=== PATIENT | male | born 1945 | race Caucasian/White ===

== ENCOUNTER → 2024-07-10 16:20 | Outpatient (REF) | payer MEDICARE, BC, SELFPAY | LOC: DHSLP 16:20 | PROVIDERS: ATTENDING PHYSICIAN Internal Medicine Cardiovascular Disease; FAMILY PHYSICIAN Internal Medicine | DX: G47.33 Obstructive sleep apnea (adult) (pediatric) (principal) | CPT/HCPCS: 95800 ==

== ENCOUNTER 2024-09-24 07:37 | Day surgery (SDC) | payer MEDICARE, BC, SELFPAY ==
[2024-09-01 13:22] VITALS: BMI 38.5
[2024-09-24] VITALS (11 sets, daily range): BP systolic 120–174; BP diastolic 63–92; BMI 38.5
[2024-09-24 08:34] LABS: Glucose - Point of Care 134 mg/dl (70-99)
--- NOTE | 2024-09-24 10:46 | ITS.CL.ABL ---
[employer] - Ablation
Ablation
Procedure Report:
Primary Senior Examiner: Timothy Talamantes MD
Procedure Date: 09/24/2024
Patient History:
Patient is a pleasant 78-year-old male with a past medical history significant for hypertension, dyslipidemia, possible syncope, symptomatic persistent atrial fibrillation on Eliquis and dronedarone.
See H&P for complete details.
Indication:
Symptomatic persistent atrial fibrillation
Arrhythmia Specific History:
Prior Medical Therapies for Rate and Rhythm Control:
X Beta-oumou
[ ] Calcium channel-oumou
[ ] Amiodarone
X Dronederone
[ ] Sotalol
[ ] Flecainide
[ ] Dofetilide
[ ] Options limited by bradycardia
[ ] Options limited by comorbid renal disease
Prior Procedural Therapies for AF/AFL:
X Cardioversion
[ ] Pulmonary Vein Isolation
[ ] Posterior Wall Isolation
[ ] Additional lines (Specify)
[ ] Surgical Vega-MAZE or PVI (Specify)
Procedure Performed:
[ ] AF ablation procedure (47735) -- includes LA/CS pacing, trans-septal, 3D mapping, + ICE
[ ] +IV drug (95739)
[ ] +Other Arrhythmia (17708)
[ ] +Other AF Line/ablation (68581)
Risks and expected recovery has been explained in detail. Alternative options have been explored, and in a shared-decision making fashion we have decided that this was the most appropriate procedure.
Method
NPO status confirmed. Grounding pad applied. Defibrillator pads applied. Continuous surface ECG, pulse oximetry, and blood pressure were monitored. Procedure was performed under general anesthesia, with anesthesia services.
Both groins were clipped, prepped with Chloraprep, and draped in sterile fashion. Time out was called. Local anesthesia administered with bupivacaine. The right femoral vein was accessed for catheter placement, using ultrasound guidance,
micro-puncture needle/wire, and modified seldinger technique. 3 sheaths were placed. The following catheters were used:
[ ] Tacticath SE (D/F Curve) ablation catheter
X Viewflex 9Fr ICE catheter
X Inquiry decapolar 6Fr diagnostic catheter
[ ] CRD Hex 6Fr
[ ] Arctic Front Advance Cryoballoon ([ ]28mm[ ]23mm)
[ ] Achieve Advance mapping catheter ([ ]15mm[ ]20mm)
X FlexCath Contour 10 Fr with PulseSelect PFA Catheter
X Advisor HD Grid Mapping Catheter, SE
[ ] Acuson AcuNav 8 Fr ICE catheter
[ ]Other: [ ]
Intracardiac ultrasound (ICE) was carefully advanced into the right atrium to guide sheath placement over a J-wire, catheter placement, guide trans-septal puncture, identify potential complications, identify anatomic structures and ensure proper
contact between ablation catheter and tissue. A trace basal LV pericardial effusion was noted at baseline which remained unchanged during procedure and at case completion.
Heparin was given prior to trans-septal puncture. Heparin was given to achieve and maintain a target ACT of 300-400 seconds throughout the procedure.
Trans-septal access was performed under ICE guidance. The trans-septal puncture was performed with a SafeSept wire through a Brockenbrough needle assembly through the steerable sheath. The wire was visualized as it entered the LSPV and system
advanced under ICE guidance and fluoroscopy into the LA. The Brockenbrough needle assembly, SafeSept wire and sheath dilator were removed under negative pressure. LA pressure was measured and recorded.
ICE and 3D mapping was performed to identify relevant cardiac structures. A careful 3D map was created to assess for regions of low-voltage and abnormal electrogram signals using HD grid mapping catheter and PulseSelect catheter. Additional mapping
was performed as outlined below.
Prior to ablation, glycopyrrolate was provided. PulseSelect catheter was advanced over J-wire to the ostium of each vein. Pulmonary vein isolation was performed with ostial and antral lesions in a circumferential manner. Contact was visualized via
EAM, ICE, fluoroscopy, and EGM signals. Following completion of ablation lesions, a post-ablation voltage/activation map was performed in sinus rhythm. Entrance and exit block were confirmed for each vein.
Catheter and sheath were removed from the left atrium and post-ablation intracardiac echo evaluation was consistent with pre-ablation with no changes and no pericardial effusion and there is no left atrial thrombus or left ventricle thrombus seen.
Electrophysiology study was performed. Hemostasis was obtained with figure of 8 stitch for each groin and with manual pressure. Protamine was used for reversal.
Estimated Blood Loss
5 mL
Complications
None
Fluoroscopy: 4.2 minutes; 18.2 mGy; DAP 3.45
Baseline Intervals:
Rhythm: Sinus rhythm
NE: 151 ms
QRS: 85 ms
QT: 308 ms
Post-Procedure Intervals:
NE: 156 ms
QRS: 92 ms
QT: 382 ms
QTc: 463 ms
A-A: 680 ms
R-R: 680 ms
AVWB: 290 ms
AVERP: 600/260 ms
Recommendations
- Bedrest with straight-leg precautions as ordered
- Anticipate same day discharge if patient meeting clinical metrics
- Resume home medications as indicated
- Ok to resume anticoagulation tonight if patient and groin sites stable
- PPI daily for 30 days
� Decrease metoprolol to 25 mg twice daily
� Continue dronedarone with plan for discontinuation at 3-month sanjuanita
- Plan for follow-up in office as scheduled
Jamel Mensah DO
Clinical [facility]
cc: Timothy Talamantes MD
[2024-09-24 11:49] LABS: ACT-LR - POC 290 Seconds (116-155)
[2024-09-24 12:04] LABS: ACT-LR - POC 314 Seconds (116-155)
[2024-09-24 12:29] LABS: ACT-LR - POC 329 Seconds (116-155)
[2024-09-24 13:01] LABS: ACT-LR - POC 213 Seconds (116-155)
--- NOTE | 2024-09-24 16:46 | W.PN.UPDATE ---
Update Note
Progress Note Update
Pt seen post PFA. Right groin site without ht/bleeding, non tender. Urinating without difficulty. Post EKG NSR 60s, no acute changes. Resume eliquis tonight and continue multaq as before. Will decrease metoprolol xl to 25mg BID. Followup with
[facility] as scheduled. Home today if groin site/tele remain stable.
== END 2024-09-24 17:50 | disposition home or self-care (01) ==
LOC: CATH 07:37
PROVIDERS: ATTENDING PHYSICIAN Internal Medicine Cardiovascular Disease; FAMILY PHYSICIAN Internal Medicine; OTHER PHYSICIAN Internal Medicine Cardiovascular Disease
DX: I48.19 Other persistent atrial fibrillation (principal); I10 Essential (primary) hypertension; E78.5 Hyperlipidemia, unspecified; E66.9 Obesity, unspecified; Z68.38 Body mass index [BMI] 38.0-38.9, adult; N40.0 Benign prostatic hyperplasia without lower urinary tract symptoms; G47.33 Obstructive sleep apnea (adult) (pediatric); M19.90 Unspecified osteoarthritis, unspecified site; Z85.46 Personal history of malignant neoplasm of prostate; Z92.3 Personal history of irradiation; Z86.006 Personal history of melanoma in-situ; Z91.81 History of falling; Z79.84 Long term (current) use of oral hypoglycemic drugs; E11.40 Type 2 diabetes mellitus with diabetic neuropathy, unspecified; Z90.49 Acquired absence of other specified parts of digestive tract; Z96.653 Presence of artificial knee joint, bilateral; Z79.01 Long term (current) use of anticoagulants
CPT/HCPCS: C1769; C1732; C1894; C1766; 82962; 85347; 86900; 86901; 93005; 93656; 93657; C1733